=== PATIENT | female | born 2000 | race African-American/Black ===

== ENCOUNTER 2020-05-27 08:17 | Emergency (ER) | payer OTHER ==
[2020-05-27 08:21] VITALS: BP 120/73; PULSE 85; TEMP 97.8; BMI 24.7
[2020-05-27] MEDS ORDERED: ONDANSETRON 4 MG/2 ML VIAL IVPUSH ONE (08:35)
[2020-05-27] MEDS ORDERED: PANTOPRAZOLE SODIUM 40 MG VIAL IVPUSH ONE (08:36)
[2020-05-27] MEDS ORDERED: MAG HYDROX/AL HYDROX/SIMETH -MYLANTA- ORAL SUSPENSION PO ONE (08:36)
[2020-05-27] MEDS ORDERED: SODIUM CHLORIDE 0.9% 500 ML INFUS.BAG IV ONE (08:36)
[2020-05-27] MEDS ORDERED: PANTOPRAZOLE SODIUM 40 MG/100 ML BAG IVPB ONE (08:54)
[2020-05-27] MEDS ORDERED: MAG HYDROX/AL HYDROX/SIMETH 30 ML UNIT-DOSE CUP ONE (08:54)
[2020-05-27] MEDS ORDERED: ONDANSETRON 4 MG/2 ML VIAL ONE (08:54)
[2020-05-27 09:33] LABS: BASO % 0.5 % (0-2.0); EOS % 0.3 % (0-4.5); HEMATOCRIT 37.7 % (32.4-45.2); HEMOGLOBIN 12.9 GM/dL (10.7-15.3); LYMPH % 13.7 % (8-40); MCH 32.7 pg (25.7-33.7); MCHC 34.1 g/dl (32.0-36.0); MEAN CELL VOLUME 95.9 fl (80-96); MEAN PLT VOLUME 8.2 fl (7.5-11.1); MONO % 6.4 % (3.8-10.2); NEUT % 79.1 % (42.8-82.8); PLATELET COUNT 242 K/MM3 (134-434); RBC 3.94 M/mm3 (3.60-5.2); WHITE BLOOD COUNT 9.9 K/mm3 (4.0-10.0)
[2020-05-27 09:56] LABS: POTASSIUM 4.9 mmol/L (3.5-5.1)
[2020-05-27 09:59] LABS: BLOOD UREA NITROGEN 10.8 mg/dL (7-18); CALCIUM 9.1 mg/dL (8.5-10.1)
[2020-05-27 10:00] LABS: ALBUMIN 4.2 g/dl (3.4-5.0)
[2020-05-27 10:03] LABS: CREATININE 0.7 mg/dL (0.55-1.3)
[2020-05-27 10:04] LABS: BILIRUBIN,TOTAL 2.3 mg/dL (0.2-1); TOT PROT 7.9 g/dl (6.4-8.2)
== END 2020-05-27 10:32 | disposition home or self-care (01) ==
LOC: JER 08:17
PROC: 3E033NZ Introduction of Analgesics, Hypnotics, Sedatives into Peripheral Vein, Percutaneous Approach (ICD-10-PCS; principal; 2020-05-27)
PROC: 3E033GC Introduction of Other Therapeutic Substance into Peripheral Vein, Percutaneous Approach (ICD-10-PCS; 2020-05-27)
DX: R11.10 Vomiting, unspecified (principal)
CPT/HCPCS: 36415; 80053; 83690; 84702; 85025; 99284-25